=== PATIENT | female | born 1995 | race Caucasian/White ===

== ENCOUNTER 2020-04-14 22:44 | Emergency (ER) | payer OTHER ==
[~2020-04-14] VITALS: Ht 172.7 cm; Wt 97.5 kg
--- NOTE | 2020-04-14 23:30 | NUR ---
Dr. Barrett at bedside for MSE.
--- NOTE | 2020-04-14 23:40 | NUR ---
Pt provided urine sample, sent to lab.
[2020-04-14 23:46] LABS: *BILIRUBIN,URIN NEGATIVE (NEGATIVE); *BLOOD, URINE NEGATIVE (NEGATIVE); *CLARITY,URINE CLEAR (CLEAR); *COLOR,URINE YELLOW (YELLOW); *KETONES,URINE NEGATIVE (NEGATIVE); *URINE HCG, QUAL NEGATIVE (NEGATIVE); *UROBILINOGEN,URINE 0.2 E.U./dl (NORMAL); LEUKOCYTE ESTERASE ,URINE NEGATIVE (NEGATIVE); NITRITE, URINE NEGATIVE (NEGATIVE); PH,URINE 7.5 (5.0-8.0); UGLUCOSE NEGATIVE (NEGATIVE)
[2020-04-15] MEDS ORDERED: KETOROLAC TROMETHAMINE 60 MG INJ IM ONE ×2 (00:45→00:51)
[2020-04-15] MEDS ORDERED: MORPHINE SULFATE 4 MG/1 ML DISP.SYRIN IM ONE (00:45)
[2020-04-15] MEDS ORDERED: MORPHINE SULFATE 4 MG/1 ML DISP.SYRIN ONE (00:51)
[2020-04-15 01:52] VITALS: BP 148/70
--- NOTE | 2020-04-15 01:52 | NUR ---
Patient discharged to home in stable condition. Written and verbal after care instructions given. Patient verbalizes understanding of instructions. Stressed follow up or return to ER for worsening s/s. Patient out of ER with steady gait, no acute signs of distress, VSS, all belongings taken.
== END 2020-04-15 01:52 | disposition home or self-care (01) ==
LOC: ER 22:44
DX: M54.5 Low back pain (principal); R03.0 Elevated blood-pressure reading, without diagnosis of hypertension
CPT/HCPCS: 81003; 84703; 96372 ×2; 99284; J1885; J2270; A4663